=== PATIENT | male | born 1980 | race Caucasian/White ===

== ENCOUNTER 2018-11-20 14:01 | Emergency (ER) | payer OTHER ==
[2018-11-20] MEDS ORDERED: SKIN ADHESIVE (DERMABOND) 1 EACH TP ONE (14:38)
--- NOTE | 2018-11-20 14:47 | EDPHY ---
H & P Stated Complaint: Injury to right shoulder while doing a back flip. - Personal History Current Tetanus Diphtheria and Acellular Pertussis (TDAP): Yes - Medical/Surgical History Hx Asthma: No Hx Chronic Respiratory Disease: No Hx Diabetes: No Hx Cardiac Disease: No Hx Renal Disease: No Hx Cirrhosis: No Hx Alcoholism: No Hx HIV/AIDS: No Hx Splenectomy or Spleen Trauma: No Other PMH: Denies - Social History Smoking Status: Never smoked Time Seen by Provider: 11/20/18 14:25 HPI/ROS: CHIEF COMPLAINT: Possible right shoulder dislocation HISTORY OF PRESENT ILLNESS: 38-year-old male generally healthy arrives via private vehicle. He is in in acrobatic droop and was performing a back flip, landed on his right shoulder and also impacted his right eyebrow. No loss of consciousness. He sustained a right eyebrow laceration to also sustained direct trauma to his right shoulder and felt immediate pain, unable to move secondary to pain, possible dislocation. No paresthesia. No loss of consciousness. No headache. No nausea or vomiting. No midline C-spine pain. No peripheral paresthesia, weakness, numbness. REVIEW OF SYSTEMS: 10 systems reviewed and negative with the exception of the elements mentioned in the history of present illness PAST MEDICAL/SURGICAL HISTORY: no anticoagulant use, no relevant medical/ surgical history SOCIAL HISTORY: denies alcohol use at time of incident PHYSICAL EXAM 1) GENERAL: Well-developed, well-nourished, alert and oriented. Appears to be in no acute distress. Answering questions appropriately. GCS 15 2) HEAD: Normocephalic, right eyebrow 1 cm laceration 3) HEENT: Pupils equal, round, reactive to light bilaterally. Negative Horners. Nasopharynx, oropharynx, clear. No deformity or angulation of nose. No septal hematoma. No rhinorrhea. No oral trauma. Ears bilaterally with normal tympanic membranes. No hemotympanum. No fluid or blood in the external auditory canal. No raccoon eyes. No Hinojosa sign. Teeth are normally aligned with no gross malocclusion, TMJ bilaterally nontender, facial bones nontender including the zygomatic arch, maxilla mandible. 4) NECK: No cervical collar is on. Posterior cervical spine is nontender, no stepoff, no effusion. Full range of motion which does not elicit any midline cervical spine pain, no posterior midline tenderness, no step-off. 5) LUNGS: Clear to auscultation bilaterally, no wheezes, no rhonchi, no retractions. No obvious signs of trauma. No chest wall pain. No flaring, no grunting. Moving symmetrically. No crepitus. 6) HEART: [Regular rate and rhythm, 7) ABDOMEN: No guarding, no rebound, no focal tenderness, no peritoneal signs, no signs of trauma, no ecchymosis 8) MUSCULOSKELETAL: Right upper extremity: Lateral step-off anterior fullness consistent with dislocation Moving all extremities, no focal areas of tenderness, no obvious trauma. 9) BACK: No midline vertebral tenderness, no fluctuance, no step-off, no obvious trauma, no visual or palpable abnormality. 10) SKIN: right eyebrow laceration 11) NEURO: Awake, alert, and oriented to person, place and time. Answers questions appropriately. There were no obvious focal neurologic abnormalities. No cerebellar dysfunction. Normal steady gait. Upper and lower extremities bilaterally with strength 5 / 5, reflexes 2+. DIFFERENTIAL DIAGNOSIS: Not necessarily in any particular order, my differential diagnosis includes, but is not limited to, concussion, skull fracture, intraparenchymal contusion, subarachnoid, subdural and epidural hematoma, fracture, dislocation. The patient understands that this diagnosis is provisional and can never be 100% accurate. (Paradise Barragan) Constitutional: Initial Vital Signs Temperature (C) 36.7 C 11/20/18 14:20 Heart Rate 68 11/20/18 14:20 Blood Pressure 137/84 H 11/20/18 14:20 O2 Sat (%) 93 11/20/18 14:20 O2 Delivery Mode Room Air Allergies/Adverse Reactions: No Known Allergies Allergy (Unverified 11/20/18 14:24) Home Medications: Medication Instructions Recorded NK [No Known Home Meds] 11/20/18 Medical Decision Making - Diagnostics Imaging Results: Imaging Impressions Shoulder X-Ray 11/20/18 14:21 Impression: Glenohumeral dislocation. Portable Right Shoulder, 2 Views, at 2:43 PM: In the interim, closed reduction has been performed, with anatomic realignment of the glenohumeral joint. There is no fracture observed. Impression: Closed reduction, with anatomic realignment of the glenohumeral joint. Shoulder X-Ray 11/20/18 14:36 Impression: Glenohumeral dislocation. Portable Right Shoulder, 2 Views, at 2:43 PM: In the interim, closed reduction has been performed, with anatomic realignment of the glenohumeral joint. There is no fracture observed. Impression: Closed reduction, with anatomic realignment of the glenohumeral joint. Images reviewed myself (Paradise Barragan) Procedures: Procedure: Dislocation reduction. . The dislocation of the right shoulder was reduced using modified Mcgarry technique without complications. Post reduction the patient's neurovascular exam is normal. Post reduction x-ray demonstrates reduction of the joint to the anatomic position. The procedure was performed by myself. Procedure: Splint A right upper extremity sling splint was applied by ER survey technician. After application of the splint I returned and re-examined the patient. The splint was adequately immobilizing the joint and distal to the splint the patient's circulation and sensation were intact. Patient shows no signs of compartment syndrome. Was given orthopedic precautions. Procedure: Laceration repair. I explained the indications, risks and benefits for both laceration repair and anesthetic administration. Verbal consent was obtained from the patient. The laceration on the right eyebrow was anesthetized using 0.5% bupivicaine with epinephrine. After anesthetic administered the patient was observed for a period of time and had no apparent adverse effects. The wound was cleaned, prepped, draped in normal sterile fashion and explored to its base. No foreign body seen, no foreign bodies palpated. There were no deep structures involved. The wound was repaired with 3 simple interrupted 6 0 Prolene sutures. The wound repair was simple. The procedure was performed by myself. Patient has been informed that scarring will occur, although efforts have been made to minimize this. (Paradise Barragan) ED Course/Re-evaluation: Re-evaluation with serial exams. He remains neurovascularly intact. Recommended follow up with Orthopedics for shoulder dislocation. Regarding his head injury, negative Steger head and C-spine decision-making tools. I Do not think that CT imaging indicated. I have provided my usual and customary head and C-spine injury precautions instructions. (Paradise Barragan) I did not see this patient while he was in the emergency department. However his care was discussed with the PA while the patient was in the department. I agree with treatment plan and management (DhirajTrevor) Departure - Departure Disposition: Home, Routine, Self-Care Clinical Impression: Rhythmic gymnastics Laceration of eyebrow Qualifiers: Encounter type: initial encounter Laterality: right Qualified Code(s): S01.111A - Laceration without foreign body of right eyelid and periocular area, initial encounter Dislocation of right shoulder joint Qualifiers: Encounter type: initial encounter Qualified Code(s): S43.004A - Unspecified dislocation of right shoulder joint, initial encounter Head injury due to trauma Qualifiers: Encounter type: initial encounter Qualified Code(s): S09.90XA - Unspecified injury of head, initial encounter Condition: Good Instructions: Shoulder Dislocation (ED), Laceration (ED), Head Injury (ED) Additional Instructions: Return to the ER immediately if you experience discoloration, have worsening pain, numbness, tingling, or any other symptoms that concern you. If you received x-rays in the emergency department today, be advised, that ligamentous , tendon, muscular, and other non-bony injury cannot be fully ruled out. Try to keep your affected extremity elevated above the level of your chest, and keep cold packs on the affected area, for the next 48 hours. ALTHOUGH THERE IS NO EVIDENCE OF SERIOUS HEAD INJURY AT THIS TIME, DELAYED SIGNS CAN APPEAR 24 TO 48 HOURS AFTER INJURY. PLEASE RETURN TO THE EMERGENCY DEPARTMENT (ED) IMMEDIATELY IF YOU HAVE INCREASED HEADACHE, PERSISTENT HEADACHE , VOMITING, WEAKNESS, CONFUSION OR VISUAL PROBLEMS. WE RECOMMEND THAT YOU DO NOT RESUME CONTACT SPORTS OR ACTIVITIES THAT TAKE COORDINATION OR BALANCE SUCH SKIING OR RIDING A BICYCLE UNTIL CLEARED TO DO SO BY YOUR DOCTOR OR BY A NEUROLOGIST. Referrals: Dhiraj Stephenson MD [Medical Doctor] - 2-3 days, call for appt. Return, to the ER in 5 days for suture removal [Other] - 11/25/18
[2018-11-20 15:46] VITALS: BP 127/88
== END 2018-11-20 15:46 | disposition home or self-care (01) ==
DX: S43.004A Unspecified dislocation of right shoulder joint, initial encounter (principal); S01.111A Laceration without foreign body of right eyelid and periocular area, initial encounter; X50.9XXA Other and unspecified overexertion or strenuous movements or postures, initial encounter; Y92.9 Unspecified place or not applicable; Y99.9 Unspecified external cause status; Y93.43 Activity, gymnastics
CPT/HCPCS: L3980